=== PATIENT | male | born 1980 | race Caucasian/White ===

== ENCOUNTER 2017-01-23 08:10 | Emergency (ER) | payer OTHER ==
[~2017-01-23] VITALS: Ht 180.3 cm; Wt 94.1 kg
[~2017-01-23 08:10] MED LIST: FLEXERIL10 MG PO; MOTRIN600 MG PO; NOHOMEMEDS; NORCO 5/3251 TABLET PO
[2017-01-23] MEDS ORDERED: PERCOCET 5/31 TABLET PO (12:14)
[2017-01-23] MEDS ORDERED: SKELAXIN800 MG PO (12:14)
[2017-01-23 12:44] VITALS: BP 126/90
== END 2017-01-23 12:45 | disposition home or self-care (01) ==
LOC: EME 08:10
DX: S39.012A Strain of muscle, fascia and tendon of lower back, initial encounter (principal); S30.0XXA Contusion of lower back and pelvis, initial encounter; X50.9XXA Other and unspecified overexertion or strenuous movements or postures, initial encounter
CPT/HCPCS: 72100; 99281; 99285; J2270